=== PATIENT | female | born 1945 | race Caucasian/White ===

== ENCOUNTER → 2016-08-30 | Outpatient (CLI) | payer OTHER ==
[~2016-08-30] MED LIST: ASPEC81 PO; ATOR-22 PO; B-COCAP2 PO; B-COTAB18 PO; CALCTAB5 PO; CHOL200010; CHONDROITEN; FAMO20TA11 PO; FEXO1TAB46 PO; GLIM4TAB2 PO; GLUC1CAP35 PO; GLYCOSAMINE; HYDC25 PO; HYDR25TA4 PO; LISI20TA3 PO; MAGNESIUM; MULT-506 PO; ONDA4TAB10 SL; ONDA4TAB4 PO; OXYC-57 PO; OXYC1TAB3 PO; PROM25TA9 PO; SUDAFED PE; VITA1TAB4 PO; flonase nasal NAE; potassium otc
--- NOTE | 2016-08-31 10:57 | MAMMOGRAPHY REPORT ---
BILATERAL DIGITAL SCREENING MAMMOGRAM TOMOSYNTHESIS WITH CAD: 08/30/2016 CLINICAL HISTORY: Routine screening. Patient has no complaints. TECHNIQUE: Breast tomosynthesis in addition to standard 2D mammography was performed. Current study was also evaluated with a Computer Aided Detection (CAD) system. COMPARISON: Comparison is made to exams dated: 08/22/2015 mammogram, 04/22/2014 mammogram, 02/21/2015 ul trasound, 05/10/2014 ultrasound, 05/10/2014 mammogram, and 12/22/2010 mammogram - [facility]. BREAST COMPOSITION: There are scattered areas of fibroglandular density in both breasts. FINDINGS: There are scattered stable benign-appearing rounded and rim calcifications in the breasts. Stable nodularity in the medial left breast. No new suspicious mass, architectural distortion or cluster of microcalcifications is seen. IMPRESSION: ACR BI-RADS CATEGORY 1: NEGATIVE There is no mammographic evidence of malignancy. A 1 year screening mammogram is recommended. The p atient will receive written notification of the results. Approximately 10% of breast cancers are not detected with mammography. A negative mammographic repor t should not delay biopsy if a clinically suggestive mass is present. Faviola Baker M.D. ay/:08/30/2016 17:42:51 Nurse Specialist: Maurilio RAMÍREZ)(M), letter sent: Normal 1/2 BI-RADS Code: ACR BI-RADS Category 1: Negative
== END ==
LOC: C.MAMM 11:43
PROVIDERS: ATTEND Obstetrics & Gynecology
DX: Z12.31 Encounter for screening mammogram for malignant neoplasm of breast (principal)

== ENCOUNTER 2016-10-25 12:28 | Emergency (ER) | payer OTHER ==
[~2016-10-25] VITALS: Ht 160 cm; Wt 87.3 kg
[~2016-10-25 12:28] MED LIST changes: -B-COTAB18 PO; -FEXO1TAB46 PO; -GLIM4TAB2 PO; -GLUC1CAP35 PO; -HYDR25TA4 PO; -ONDA4TAB10 SL; -OXYC1TAB3 PO; -PROM25TA9 PO; -VITA1TAB4 PO
[2016-10-25] MEDS ORDERED: ONDANSETRON INJ 2 MG/ML 2 ML VIAL IV STA (12:32)
--- NOTE | 2016-10-25 12:35 | EMERGENCY ROOM VISIT NOTE ---
History Report prepared by Puja: Kei Rayo Under the Supervision of: Dr. Manjinder Diaz D.O. First contact with patient: 12:27 Chief Complaint: FALL Stated Complaint: FALL/ ELBOW PAIN History of Present Illness The patient is a 70 year old female who presents to the Emergency Room with complaints of pain in her left elbow following a fall that occurred shortly prior to arrival. The patient states that she fell on her left side, with her arm pulled in towards her body, while she was planting shrubs today. She rates her current pain at an 8/10 in severity. The patient denies any pain in the back , abdomen, or legs. 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 A total of 10 systems reviewed and were otherwise negative. Past Medical & Surgical Medical Problems: (1) Carpal tunnel syndrome of right wrist (2) Cataract (3) Diabetes (4) HTN (hypertension) (5) Status post bilateral knee replacements Surgical Problems: (1) S/P cholecystectomy Family History No pertinent family history secondary to case. Social History Marital Status: Housing Status: lives with significant other Occupation Status: retired Current/Historical Medications Scheduled Atorvastatin (Lipitor), 20 MG PO HS B-Complex Vitamins (Vitamin B Complex), 1 TAB PO DAILY Cholecalciferol (Vitamin D), 2,000 MG DAILY Famotidine (Pepcid), 20 MG PO BID Fexofenadine Hcl (Felicia), 180 MG PO DAILY Glimepiride (Glimepiride), 1 TAB PO DAILY Jqsjbsjmrek-Aiyvmardcue-Xha C- (Glucosamine Chondroitin), 1 TAB PO DAILY Hydrochlorothiazide (Hctz), 25 MG PO DAILY Lisinopril (Prinivil), 20 MG PO QAM Multivitamin (Multivitamin), 1 TAB PO DAILY Ondasetron Odt (Zofran Odt), 4 MG SL Q6H Vitamin E (Vitamin E), 400 UNITS PO DAILY Scheduled PRN Oxycodone Immediate Rel Tab (Roxicodone Ir), 1-2 TAB PO Q4H PRN for Severe Pain Allergies Coded Allergies: Sulfamethoxazole w/Trimethoprim (Unverified Allergy, Severe, hives;rash, 5 /9/14) Codeine (Verified Adverse Reaction, Mild, VOMITING, 10/26/13) Physical Exam Vital Signs Date Time Temp Pulse Resp B/P Pulse Ox O2 Delivery O2 Flow Rate FiO2 10/25/16 14:38 73 18 128/76 96 Room Air 10/25/16 13:21 67 20 145/76 100 Room Air 10/25/16 12:45 36.6 78 18 183/111 98 Room Air Physical Exam GENERAL: Patient is awake, alert, and very anxious appearing. Appears to be in significant to severe pain. EYES: The conjunctivae are clear. The pupils are round and reactive. EARS, NOSE, MOUTH AND THROAT: The nose is without any evidence of any deformity. Mucous membranes are moist tongue is midline NECK: The neck is nontender and supple. RESPIRATORY: Normal respiratory effort is noted there is no evidence of wheezing rhonchi or rales CARDIOVASCULAR: Regular rate and rhythm noted there no murmurs rubs or gallops normal S1 normal S2 GASTROINTESTINAL: The abdomen is soft. Bowel sounds are present in all quadrants. Abdomen is nontender PELVIS: The Pelvis is stable. No tenderness to palpation is noted. BACK: No midline tenderness or or step-off noted range of motion in flexion extension as well as rotation no signs of muscle spasm noted MUSCULOSKELETAL/EXTREMITIES: There is significant tenderness over the mid-shaft of the LUE. Pulses were symmetric, patient was intact to motor over the median ulnar and nerve distributions. Full range of motion is noted in the hips and shoulders SKIN: There is no obvious evidence of any rash. There are no petechiae, pallor or cyanosis noted. NEUROLOGIC: Patient is awake alert and oriented x3. Medical Decision & Procedures ER Provider Diagnostic Interpretation: Radiology results as stated below per my review and radiologist interpretation: LEFT HUMERUS MIN 2 VIEWS ROUTINE CLINICAL HISTORY: Fall. COMPARISON: Left shoulder radiograph October 20, 2013. FINDINGS: There is a moderately displaced oblique fracture of the midshaft of the left humerus. The fracture may extend to the distal most aspect of the humeral component from the left total arthroplasty. Alignment of the left elbow is anatomic. This exam was compromised due to difficulty with patient positioning. Note that the entirety of the left shoulder arthroplasty was not imaged on this exam. IMPRESSION: Moderately displaced oblique mid shaft fracture of the left humerus. Fracture extends to the level of the distal most aspect of the humeral component of the arthroplasty. Electronically signed by: Reggie Dennis M.D. 10/25/2016 1:17 PM Dictated Date/Time: 10/25/2016 1:15 PM Laboratory Results 10/25/16 12:40 Red Blood Count 5.02, Mean Corpuscular Volume 84.7, Mean Corpuscular Hemoglobin 28.9, Mean Corpuscular Hemoglobin Concent 34.1, Mean Platelet Volume 10.1, Neutrophils (%) (Auto) 72.8, Lymphocytes (%) (Auto) 16.6, Monocytes (%) (Auto) 7.3, Eosinophils (%) (Auto) 2.2, Basophils (%) (Auto) 1.0, Neutrophils # (Auto) 6.84, Lymphocytes # (Auto) 1.56, Monocytes # (Auto) 0.69, Eosinophils # (Auto) 0.21, Basophils # (Auto) 0.09 10/25/16 12:40 Test 10/25/16 12:40 White Blood Count 9.40 K/uL (4.8-10.8) Red Blood Count 5.02 M/uL (4.2-5.4) Hemoglobin 14.5 g/dL (12.0-16.0) Hematocrit 42.5 % (37-47) Mean Corpuscular Volume 84.7 fL (80-100) Mean Corpuscular Hemoglobin 28.9 pg (25-34) Mean Corpuscular Hemoglobin Concent 34.1 g/dl (32-36) Platelet Count 311 K/uL (130-400) Mean Platelet Volume 10.1 fL (7.4-10.4) Neutrophils (%) (Auto) 72.8 % Lymphocytes (%) (Auto) 16.6 % Monocytes (%) (Auto) 7.3 % Eosinophils (%) (Auto) 2.2 % Basophils (%) (Auto) 1.0 % Neutrophils # (Auto) 6.84 K/uL (1.4-6.5) Lymphocytes # (Auto) 1.56 K/uL (1.2-3.4) Monocytes # (Auto) 0.69 K/uL (0.11-0.59) Eosinophils # (Auto) 0.21 K/uL (0-0.5) Basophils # (Auto) 0.09 K/uL (0-0.2) RDW Standard Deviation 43.0 fL (36.4-46.3) RDW Coefficient of Variation 14.0 % (11.5-14.5) Immature Granulocyte % (Auto) 0.1 % Immature Granulocyte # (Auto) 0.01 K/uL (0.00-0.02) Prothrombin Time 10.1 SECONDS (9.0-12.0) Prothromb Time International Ratio 0.9 (0.9-1.1) Activated Partial Thromboplast Time 27.5 SECONDS (21.0-31.0) Partial Thromboplastin Ratio 1.1 Anion Gap 9.0 mmol/L (3-11) Est Creatinine Clear Calc Drug Dose 83.1 ml/min Estimated GFR () 103.7 Estimated GFR (Non- 89.5 BUN/Creatinine Ratio 37.1 (10-20) Calcium Level 9.7 mg/dl (8.5-10.1) Total Bilirubin 0.6 mg/dl (0.2-1) Direct Bilirubin 0.1 mg/dl (0-0.2) Aspartate Amino Transf (AST/SGOT) 36 U/L (15-37) Alanine Aminotransferase (ALT/SGPT) 77 U/L (12-78) Alkaline Phosphatase 81 U/L (45-117) Total Protein 7.5 gm/dl (6.4-8.2) Albumin 4.1 gm/dl (3.4-5.0) Laboratory results per my review. Medications Administered Medications (Trade) Dose Ordered Sig/Bacilio Route Start Time Stop Time Status Last Admin Dose Admin Morphine Sulfate (MoRPHine SULFATE INJ) 4 mg Q15M PRN IV 10/25/16 12:45 10/25/16 15:08 DC 10/25/16 13:17 4 MG Ondansetron HCl (Zofran Inj) 4 mg NOW STAT IV 10/25/16 12:32 10/25/16 12:34 DC 10/25/16 12:40 4 MG ED Course 1228: The patient was evaluated in room B2. A complete history and physical examination were performed. 1232: Ordered Zofran 4 mg IV. 1245: Ordered Morphine Sulfate 4 mg IV. 1402: I discussed the case with Best Ramirez PA-C at this time. He will set up an appointment for the patient in the office as son as possible. 1413: Best Asher has set an appointment for tomorrow at 1130 for the patient. The patient will be discharged home. Medical Decision The patient's history was concerning for traumatic injury Differential diagnosis: Etiologies such as fracture, dislocation, intra-abdominal, pneumothorax, intrathoracic , intracranial, neurologic, as well as other traumatic pathologies were entertained. Nursing notes reviewed. The patient is a 70-year-old female who presented to the emergency department after a fall. The patient has a history of left humerus surgery from a previous humeral fracture. She fell onto her left side. She presented with very severe pain and a physical exam consistent with a humeral fracture. X-rays did reveal a spiral fracture which was displaced. The patient was intact to motor exam in the median ulnar and radial nerve distributions. She did complain of intermittent tingling in the left hand but to light touch her sensation appeared intact. I was very concerned about the neurovascular compromise given the patient's x-ray findings. The patient was placed into a splint and treated with IV pain medication. On subsequent reevaluation she was feeling much better. I discussed her case with the orthopedic service of her choice. They were able to review the films. They agree that the patient's x-ray findings are very concerning given the patient's comfort level she was able to be discharged home. The patient likely will require surgical intervention on this significant fracture. I did explain this with her. The patient does have a medical background and I do feel that she would recognize any neurovascular compromise. She was encouraged to follow-up with orthopedic physician as scheduled. She was also encouraged to return to the emergency apartment immediately if she develops any worsening symptoms such as weakness pain tingling swelling or any other worrisome symptoms in the left upper extremity. Consults Time Called: [phone] Consulting Physician: Best Ramirez PA-C Returned Call: [phone] I discussed the case with Best Ramirez PA-C at this time. He will set up an appointment for the patient in the office this week. Impression Primary Impression: Left humeral fracture Scribe Attestation The scribe's documentation has been prepared under my direction and personally reviewed by me in its entirety. I confirm that the note above accurately reflects all work, treatment, procedures, and medical decision making performed by me. Departure Information Dispostion Home / Self-Care Prescriptions Ondasetron Odt (ZOFRAN ODT) 4 Mg Tab 4 MG SL Q6H for Nausea, #20 TAB Prov: Manjinder Diaz, DO 10/25/16 Oxycodone Immediate Rel Tab (ROXICODONE IR) 5 Mg Tab 1-2 TAB PO Q4H Y for Severe Pain, #24 TAB Prov: Manjinder Diaz, DO 10/25/16 Patient Instructions [facility] Problem Qualifiers Primary Impression: Left humeral fracture Encounter type: initial encounter Humerus Location: shaft Fracture type: closed Fracture morphology: spiral Fracture alignment: displaced Qualified Codes: S42.342A - Displaced spiral fracture of shaft of humerus, left arm, initial encounter for closed fracture
[2016-10-25] MEDS: MoRPHine SULFATE 4 MG/ML 1 ML CARP\\VIAL IV PRN ×2 (12:41→13:17)
[2016-10-25 12:45] VITALS: TEMP 36.6; Ht 160 cm; Wt 87.3 kg
[2016-10-25 13:04] LABS: BASO ABS # 0.09 K/uL (0-0.2); COMPLETE YES; EOS % 2.2 %; HEMATOCRIT 42.5 % (37-47); IG% 0.1 %; LYMPH % 16.6 %; LYMPH ABS # 1.56 K/uL (1.2-3.4); MEAN CELL VOLUME 84.7 fL (80-100); MEAN CORPUSCULAR HEMOGLOBIN 28.9 pg (25-34); MEAN CORPUSCULAR HGB CONC 34.1 g/dl (32-36); MEAN PLATELET VOLUME 10.1 fL (7.4-10.4); MONO % 7.3 %; NEUT % 72.8 %; PLATELET COUNT 311 K/uL (130-400); RED BLOOD COUNT 5.02 M/uL (4.2-5.4)
--- NOTE | 2016-10-25 13:18 | DIAGNOSTIC IMAGING REPORT ---
LEFT HUMERUS MIN 2 VIEWS ROUTINE CLINICAL HISTORY: Fall. COMPARISON: Left shoulder radiograph October 20, 2013. FINDINGS: There is a moderately displaced oblique fracture of the midshaft of the left humerus. The fracture may extend to the distal most aspect of the humeral component from the left total arthroplasty. Alignment of the left elbow is anatomic. This exam was compromised due to difficulty with patient positioning. Note that the entirety of the left shoulder arthroplasty was not imaged on this exam. IMPRESSION: Moderately displaced oblique mid shaft fracture of the left humerus. Fracture extends to the level of the distal most aspect of the humeral component of the arthroplasty. Electronically signed by: Reggie Dennis M.D. 10/25/2016 1:17 PM Dictated Date/Time: 10/25/2016 1:15 PM
[2016-10-25 13:20] LABS: INR 0.9 (0.9-1.1); PARTIAL THROMBOPLASTIN RATIO 1.1; PROTHROMBIN TIME (PATIENT) 10.1 SECONDS (9.0-12.0)
[2016-10-25] MEDS ORDERED: GLUC1CAP35 PO (13:27)
[2016-10-25] MEDS ORDERED: GLIM4TAB2 PO (13:27)
[2016-10-25] MEDS ORDERED: HYDR25TA4 PO (13:27)
[2016-10-25] MEDS ORDERED: FEXO1TAB46 PO (13:27)
[2016-10-25] MEDS ORDERED: VITA1TAB4 PO (13:27)
[2016-10-25] MEDS ORDERED: B-COTAB18 PO (13:27)
[2016-10-25 13:34] LABS: BUN/CREATININE RATIO 37.1 (10-20); CREATININE 0.66 mg/dl (0.60-1.20); POTASSIUM 3.4 mmol/L (3.5-5.1)
[2016-10-25 13:41] LABS: CALCIUM 9.7 mg/dl (8.5-10.1)
[2016-10-25] MEDS ORDERED: OXYC1TAB3 PO (14:19)
[2016-10-25] MEDS ORDERED: ONDA4TAB10 SL (14:32)
[2016-10-25 14:38] VITALS: BP 128/76; PULSE 73; O2SAT 96
== END 2016-10-25 14:55 | disposition home or self-care (01) ==
LOC: EDBD 12:28 → C.EDB 12:29
DX: S42.342A Displaced spiral fracture of shaft of humerus, left arm, initial encounter for closed fracture (principal); W19.XXXA Unspecified fall, initial encounter; Y92.017 Garden or yard in single-family (private) house as the place of occurrence of the external cause; E11.9 Type 2 diabetes mellitus without complications; I10 Essential (primary) hypertension; Z96.653 Presence of artificial knee joint, bilateral; Z79.899 Other long term (current) drug therapy

== ENCOUNTER → 2016-10-26 | Outpatient (CLI) | payer OTHER ==
[~2016-10-26] MED LIST changes: -ASPEC81 PO; -B-COCAP2 PO; +B-COTAB18 PO; -CALCTAB5 PO; -CHONDROITEN; +FEXO1TAB46 PO; +GLIM4TAB2 PO; +GLUC1CAP35 PO; -GLYCOSAMINE; -HYDC25 PO; +HYDR25TA4 PO; -MAGNESIUM; +ONDA4TAB10 SL; -ONDA4TAB4 PO; +OXYC1TAB3 PO; +PROM25TA9 PO; -SUDAFED PE; +VITA1TAB4 PO; -flonase nasal NAE; -potassium otc
[2016-10-26 17:41] LABS: BASO % 0.8 %; BASO ABS # 0.08 K/uL (0-0.2); COMPLETE YES; EOS % 1.8 %; HEMATOCRIT 35.9 % (37-47); IG% 0.1 %; LYMPH % 25.3 %; LYMPH ABS # 2.52 K/uL (1.2-3.4); MEAN CELL VOLUME 86.9 fL (80-100); MEAN CORPUSCULAR HEMOGLOBIN 29.3 pg (25-34); MEAN CORPUSCULAR HGB CONC 33.7 g/dl (32-36); MEAN PLATELET VOLUME 10.7 fL (7.4-10.4); MONO % 11.7 %; NEUT % 60.3 %; PLATELET COUNT 278 K/uL (130-400); RED BLOOD COUNT 4.13 M/uL (4.2-5.4); WHITE BLOOD COUNT 9.97 K/uL (4.8-10.8)
[2016-10-26 18:38] LABS: BLOOD UREA NITROGEN 25 mg/dl (7-18); BUN/CREATININE RATIO 32.7 (10-20); CALCIUM 8.9 mg/dl (8.5-10.1); CARBON DIOXIDE 30 mmol/L (21-32); CHLORIDE 100 mmol/L (98-107); CREATININE 0.75 mg/dl (0.60-1.20); GLUCOSE 121 mg/dl (70-99); POTASSIUM 3.3 mmol/L (3.5-5.1); SODIUM 139 mmol/L (136-145)
[2016-10-27 07:10] LABS: ESTIMATED AVERAGE GLUCOSE 143 mg/dl; HA1C FLAG Normal (Normal)
--- NOTE | 2016-11-08 08:43 | CODING QUERY MEDICAL NECESSITY ---
SUPPORTING DIAGNOSIS NEEDED Dr. Fernandez, A supporting diagnosis is required for the test/procedure performed on this patient in order for us to be reimbursed by the patient's insurance. Please provide a supporting diagnosis for the following test/procedure listed below next to the test name along with your signature. *If there is no additional diagnosis for this patient that would support the following test/procedure please document that below next to the test/procedure. Test(s)/Procedure(s) that require a supporting diagnosis: * 48940 GLYCATED HEMOGLOBIN DIAGNOSIS: DATE OF SERVICE: 10/26/16 Provider Signature: Date: Thank you Ammon Vines [facility] Information Management Once completed, please kindly fax back to [phone] For questions please call [phone]
== END | disposition home or self-care (01) ==
LOC: C.CPL 16:34
PROVIDERS: ATTEND Orthopaedic Surgery
DX: Z01.818 Encounter for other preprocedural examination (principal)

== ENCOUNTER 2016-10-29 10:30 | Inpatient (IN) | payer OTHER ==
--- NOTE | 2016-10-28 16:29 | HISTORY & PHYSICAL EXAMINATION ---
DATE OF ADMISSION: 10/29/2016 SUBJECTIVE CHIEF COMPLAINT: Left elbow and shoulder pain. HISTORY OF PRESENT ILLNESS: The patient is a 70-year-old female who presents with left elbow and shoulder pain. She stated that she had a fall while she was planting shrubs today. She presented to the emergency room where she complained of elbow and shoulder pain. She states that the pain was an 8/10 in severity. She denied any back pain, abdominal pain or leg pain. PAST MEDICAL HISTORY: Significant for diabetes and hypertension. PAST SURGICAL HISTORY: Carpal tunnel syndrome of the right wrist, bilateral TKA, and cholecystectomy. SOCIAL HISTORY: The patient denies alcohol use. She denies smoking or tobacco use. Denies IV drug use. She is currently and retired. ALLERGIES: BACTRIM AND CODEINE. MEDICATIONS: Atorvastatin 20 mg p.o. daily, B complex, vitamins, vitamin D, Pepcid 20 mg p.o. b.i.d., Felicia 100 mg p.o. daily, glimepiride 1 tab p.o. daily, glucosamine chondroitin 1 tab p.o. daily, hydrochlorothiazide 25 mg p.o. daily, lisinopril 20 mg p.o. q.a.m., multivitamin, vitamin E. REVIEW OF SYSTEMS: She denies headaches, fevers, chills, double vision, blurry vision, sore throat, congestion, cough, nausea, vomiting, diarrhea, constipation, numbness or tingling, tired, urinary difficulties, thoughts to harm herself or harm others, or depression. She is positive for joint pain and stiffness of her left upper extremity. OBJECTIVE: GENERAL APPEARANCE: The patient is a 70-year-old female that is sitting. She is in no acute distress. She is awake, alert and oriented x3. VITAL SIGNS: Her blood pressure was 145/76. HEENT: Extraocular movements are intact. PERRLA. Mucosa was moist. No septal deviation. NECK: Supple with no lymphadenopathy, no JVD, no thyromegaly. HEART: Regular rate and rhythm with no murmurs or gallops. LUNGS: Clear to auscultation. No wheezing or rhonchi. ABDOMEN: Soft, nontender, nondistended. Normal bowel sounds, no hepatosplenomegaly. EXTREMITIES: Paying particular attention to the left upper extremity. She is splinted. She has diffuse tenderness of the upper extremity upon palpation, ecchymosis is noted, not able to move the extremity due to pain. NEUROLOGIC: Cranial nerves II-XII were intact. Pulses were compared bilaterally and were equal. IMAGING DATA: X-rays of the left humerus demonstrate a displaced oblique fracture of the midshaft of the left humerus, alignment of the left elbow is anatomical and fracture may extend to the distal most aspect of the humeral component of the left total shoulder arthroplasty. IMPRESSION: Closed displaced oblique midshaft fracture of the left humerus. PLAN: The patient is scheduled for an open reduction internal fixation of her displaced oblique midshaft humerus fracture. Risks and benefits were discussed with the patient that included but not limited to infection, DVT, limited range of motion, failure to relieve all symptoms, nonunion, blood vessel damage, nerve damage, PE and . The patient understands these risks and wishes to proceed. All questions were answered to her satisfaction. CLEMENT
[2016-10-28 17:10] VITALS: BMI 33.2
[~2016-10-29] VITALS: Ht 160 cm; Wt 85.0 kg
[2016-10-29] VITALS (7 sets, daily range): BP systolic 121–132; BP diastolic 63–77; PULSE 60–94; TEMP 36.3–37; O2SAT 94–99; Ht 160 cm; Wt 85.0 kg
[~2016-10-29 10:30] MED LIST changes: -OXYC-57 PO; -PROM25TA9 PO
[2016-10-29] MEDS ORDERED: FENTANYL CITRATE INJ 50 MCG/1 ML 2 ML VIAL ONE ×3 (10:46→13:38)
[2016-10-29] MEDS ORDERED: MIDAZOLAM HCL 1 MG/ML 2ML VIAL ONE (10:46)
[2016-10-29] MEDS ORDERED: ROCURONIUM BROMIDE 10 MG/ML 5 ML VIAL ONE ×2 (10:46→13:50)
[2016-10-29] MEDS ORDERED: ONDANSETRON INJ 2 MG/ML 2 ML VIAL ONE ×2 (10:46→17:16)
[2016-10-29] MEDS ORDERED: DEXAMETHASONE SOD INJ 4 MG/ML VIAL ONE ×2 (10:46→12:15)
[2016-10-29] MEDS ORDERED: PROPOFOL IV EMULSION 10 MG/ML 20 ML VIAL IV ONE (10:46)
[2016-10-29] MEDS ORDERED: LIDOCAINE HCL 2% 2 ML VIAL (20MG/ML) ONE (10:46)
--- NOTE | 2016-10-29 11:23 | History & Physical Bridge Note ---
H&P Re-Evaluation Bridge Note: I have examined the patient, reviewed the History & Physical and in the interval since the performance of the History & Physical I have noted the following changes of clinical significance: No changes noted
[2016-10-29] MEDS ORDERED: BUPIVACAINE/EPINEPHRINE 0.5% MPF 1:200,000 30 ML VIAL ONE ×2 (12:15→12:19)
[2016-10-29] MEDS ORDERED: BUPIVACAINE/EPINEPHRINE 0.25% 1:200,000 30 ML VIAL ONE (12:18)
[2016-10-29] MEDS: CEFAZOLIN 2000 MG/60 ML D5W IV SCH ×2 (12:44→12:46)
[2016-10-29] MEDS ORDERED: BUPIVACAINE 0.5 % 5 MG/1 ML MPF 30ML VIAL ONE (12:58)
[2016-10-29] MEDS ORDERED: BACITRACIN 50000 UNIT VIAL ONE (12:59)
[2016-10-29] MEDS ORDERED: LABETALOL HCL IV 5 MG/ML 20ML IV ONE ×7 (14:38)
[2016-10-29] MEDS ORDERED: EpHEDrine SULFATE INJ 50 MG/ML AMP ONE (14:50)
[2016-10-29] MEDS ORDERED: GLYCOPYRROLATE INJ 0.2 MG/ML VIAL ONE (15:03)
[2016-10-29] MEDS ORDERED: NEOSTIGMINE METHYLSULFATE 5 MG/5 ML SYR ONE (15:03)
--- NOTE | 2016-10-29 15:16 | DIAGNOSTIC IMAGING REPORT ---
LEFT HUMERUS MIN 2 VIEW ROUTINE CLINICAL HISTORY: ORIF of left humerus COMPARISON STUDY: Left humerus radiographs October 25, 2016. Fluoroscopy time: 92 seconds. FINDINGS: A left shoulder arthroplasty is again noted. There has been interval placement of a left humeral plate with screws. This hardware fixates the left humeral fracture. Fracture alignment has markedly improved and is now near anatomic. A radiodensity adjacent to the left humerus is postsurgical. There are no unexpected radiopaque foreign bodies. IMPRESSION: Expected findings following left humeral internal fixation. Electronically signed by: Reggie Dennis M.D. 10/29/2016 3:15 PM Dictated Date/Time: 10/29/2016 3:13 PM
[2016-10-29] MEDS ORDERED: HYDROmorphone INJ 1 MG/ML SYR ONE ×2 (16:14→16:28)
[2016-10-29] MEDS ORDERED: ATROPINE SULFATE 0.1 MG/ML 5ML SYR IV PRN (16:15)
[2016-10-29] MEDS ORDERED: EpHEDrine SULFATE INJ 50 MG/ML AMP IV PRN (16:15)
[2016-10-29] MEDS ORDERED: HYDROmorphone INJ 1 MG/ML SYR IV PRN (16:15)
[2016-10-29] MEDS ORDERED: ONDANSETRON INJ 2 MG/ML 2 ML VIAL IV PRN ×2 (16:15→17:00)
[2016-10-29] MEDS ORDERED: SOD PHOSPHATE/SOD BIPHOSPHATE ENEMA 132 ML BTL PR PRN (17:00)
[2016-10-29] MEDS ORDERED: MAGNESIUM HYDROXIDE SUSP 30 ML UDC PO PRN (17:00)
[2016-10-29] MEDS ORDERED: BISACODYL 10 MG SUPP PR PRN (17:00)
[2016-10-29] MEDS ORDERED: ALUMINUM/MAGNESIUM/SIMETH (MAALOX MAX) 30 ML UDC PO PRN (17:00)
[2016-10-29] MEDS ORDERED: MoRPHine SULFATE 2 MG/ML CARP IV PRN (17:00)
--- NOTE | 2016-10-29 17:23 | [facility] Post Operative Brief Note ---
Immediate Operative Summary Operative Date October 29, 2016. Pre-Operative Diagnosis Closed displaced oblique midshaft fracture of the left humerus, periprosthetic Post-Operative Diagnosis same Procedure(s) Performed Left Humeral Periprosthetic Fracture Open Reduction Internal Fixation Surgeon Dr. Fernandez Chief Marketing Officer Surgeon(s) Best Asher PA-C Estimated Blood Loss 350ml Findings above, radial nerve at the level of the fracture, identified and protected Specimens 0 Drains 1 hemovac Anesthesia geta Complication(s) None Disposition Recovery Room / PACU
[2016-10-29] MEDS: LACTATED RINGER'S 1000ML 1,000 ML IV SCH ×2 (17:46→17:48)
--- NOTE | 2016-10-29 17:54 | Anesthesiology Progress Note ---
Anesthesia Post Op Note Date & Time October 29, 2016 at 17:54 Vital Signs Pain Intensity: 2 Vital Signs Past 12 Hours Date Time Temp Pulse Resp B/P Pulse Ox O2 Delivery O2 Flow Rate FiO2 10/29/16 17:00 36.0 61 16 148/62 100 Nasal Cannula 2 10/29/16 16:50 61 16 134/66 100 Nasal Cannula 2 10/29/16 16:40 58 16 147/64 100 Nasal Cannula 2 10/29/16 16:30 60 16 132/84 100 Nasal Cannula 2 10/29/16 16:20 60 16 132/60 100 Nasal Cannula 2 10/29/16 16:10 64 16 131/82 100 Nasal Cannula 4 10/29/16 16:00 69 16 143/70 100 Mask 10 10/29/16 15:52 36.2 76 16 144/67 100 Mask 10 Notes Mental Status: alert / awake / arousable, participated in evaluation Pt Amnestic to Procedure: Yes Nausea / Vomiting: adequately controlled Pain: adequately controlled Airway Patency, RR, SpO2: stable & adequate BP & HR: stable & adequate Hydration State: stable & adequate Anesthetic Complications: no major complications apparent Block working well in pacu
[2016-10-29] MEDS ORDERED: PHARMACY GLYCEMIC MGMT CONSULT SCH (18:09)
[2016-10-29] MEDS ORDERED: MoRPHine SULFATE 4 MG/ML 1 ML CARP\\VIAL IV PRN (18:15)
[2016-10-29] MEDS ORDERED: MoRPHine SULFATE 10 MG/ML CARP/VIAL IV PRN (18:15)
[2016-10-29] MEDS: POTASSIUM CHLORIDE INJ 10 MEQ in SODIUM CHLORIDE 0.9% 1000ML 1,000 ML IV SCH (18:52)
[2016-10-29] MEDS ORDERED: DEXTROSE 50% 50 ML SYR IV PRN (19:15)
[2016-10-29] MEDS ORDERED: GLUCOSE 40% GEL 15 GM TUBE PO PRN (19:15)
[2016-10-29] MEDS ORDERED: GLUCOSE 10 TABS/TUBE PO PRN (19:15)
[2016-10-29] MEDS ORDERED: GLUCAGON FOR INJ 1 MG VIAL SQ PRN (19:15)
--- NOTE | 2016-10-29 19:28 | Progress Note ---
Progress Note Date of Service October 29, 2016. Progress Note left humerus fx s/p orif, dm, htn dyslipidemia, [id number]
--- NOTE | 2016-10-29 20:08 | CONSULTATION REPORT ---
DATE OF CONSULTATION: 10/29/2016 PHYSICIAN REQUESTING CONSULTATION: Gabe Fernandez MD REASON FOR CONSULTATION: Medical management post left humeral periprosthetic fracture, ORIF. HISTORY OF PRESENT ILLNESS: The patient is a 70-year-old white female admitted to Dr. Fernandez's service because of the left elbow and shoulder pain. She had a fall and has closed displaced mid shaft fracture in the left humerus. Dr. Fernandez did a procedure like I mentioned in the above before. Medicine consulted for the medical management. The patient has past medical history of diabetes, hypertension. When I talked to patient, she felt sleepy, possibly from the pain medicine, but has no obvious complaint. Denied fever or chill. Denied cough, sputum, shortness of breath, palpitation. Denied chest pain, palpitation, lower extremity swellings. Denied nausea, vomiting, abdominal pain, diarrhea, or constipation. Denied dysuria, urgency, or frequencies. Denied facial droop, slurry speeches or local weakness. Denied skin rashes. PAST MEDICAL HISTORY: Like I mentioned in the above which includes diabetic and hypertension. PAST SURGICAL HISTORY: Includes carpal tunnel surgeries, bilateral TKA, cholecystectomy, and today's left humerus ORIF which was on the fracture. SOCIAL HISTORY: Denied alcohol abuse disorder, denied illicit drug abuse, denied tobacco abuse. ALLERGIES: ALLERGIC TO BACTRIM AND CODEINE. MEDICATIONS: Taking prior to the admission include; 1. Atorvastatin 20 mg p.o. daily. 2. Vitamin B complex. 3. Pepcid 20 mg p.o. b.i.d. 4. Felicia 100 mg p.o. daily. 5. Glimepiride 1 tab p.o. daily. 6. Glucosamine chondroitin 1 tab p.o. daily. 7. HCTZ 25 mg p.o. daily. 8. Lisinopril 20 mg p.o. q.a.m. 9. Multiple vitamin and vitamin E. REVIEW OF SYSTEMS: Please see HPI. FAMILY HISTORY: Noncontributory. PHYSICAL EXAMINATION: VITAL SIGNS: Temperature is 36.6, pulse 68, respiratory rate 18, blood pressure 129/74, pulse ox was 99% on room air. GENERAL: The patient is a white female, like I mentioned feels sleepy, but awake, alert and orientated, conversational, follows all commands. HEAD: Normocephalic. EYES: Pupils equal, round, responds to light. EARS: Normal. NOSE: Normal. NECK: Supple. Thyroid no enlargement. Trachea midline. HEART: Regular rhythm. S1, S2. LUNGS: Decreased breathing sounds. There was no wheezing, rhonchi or crackles. ABDOMEN: Soft, nontender. Bowel sound was positive. No hepatosplenomegaly. EXTREMITIES: Left arm is in dressing. Left hands, fingers, wrist pulse was normal and symmetric. No cyanosis. Capillary refill was normal. Bilateral lower extremities, no swelling. Homans sign was negative. ASSESSMENT AND PLAN: 1. Left shoulder closed displaced mid shaft fracture, status post open reduction and internal fixation. This will be managed by the primary team. Others such as physical therapy and occupational therapy, pain management, rehab, discharge plan will be per primary team. Deep venous thrombosis prophylaxis will be per primary team too. 2. History of hypertension, dyslipidemia and diabetic. We will continue home medications. We will start insulin sliding scale and for the blood pressure medicine it will be okay to restart home medication now, because patient's blood pressure has been stable. 3. I have ordered tomorrow morning labs including CBC, BMP and mag. Thank you for the chance to involve in the care of patient. We will continue to follow up. CLEMENT
[2016-10-29] MEDS: OXYCODONE HCL IR 5 MG TAB (IMMEDIATE RELEASE) PO PRN (20:59)
[2016-10-29] MEDS ORDERED: INSULIN ASPART 100 UNITS/ML 3 ML PEN SC SCH (21:00)
[2016-10-29] MEDS ORDERED: SENNA 8.6 MG TAB PO SCH (21:00)
[2016-10-29] MEDS ORDERED: ATORVASTATIN 20 MG TAB PO SCH (21:00)
[2016-10-29] MEDS: DOCUSATE SODIUM 100 MG CAP PO SCH (21:01)
[2016-10-29] MEDS: FAMOTIDINE 20 MG TAB PO SCH (21:01)
[2016-10-29] MEDS ORDERED: LANTUS PER UNIT CHARGE SQ SCH (21:15)
--- NOTE | 2016-10-29 21:32 | Pharmacy Progress Note ---
Glycemic Control Intl Consult Date of Service October 29, 2016. Scope Glycemic Pharmacist consulted by Ash Osman PA-C on 10/29/16 for glycemic control and to write orders per [facility] inpatient glycemic control protocol Objective Weight (Kilograms): 85.000 Accuchecks BSG (last 24hrs): Test 10/29/16 10:50 10/29/16 17:58 10/29/16 20:51 Bedside Glucose 156 mg/dl (70-90) 234 mg/dl (70-90) 214 mg/dl (70-90) HbA1c Item Value Date Time Hemoglobin A1c 6.6 % H 10/26/16 1638 Recent Pertinent Medications Outpatient Anti-diabetic Regimen: * Glimepiride 4 mg PO daily * A1c = 6.6 % 10/26/16 Risk Factors for Insulin Resistance: * Steroids: Dexamethasone 4 mg IV x 2 doses in OR * Recent Surgery - POD #0 left shoulder surgery * Diet: T2DM Assessment & Plan ASSESSMENT: * 70 year old T2DM female s/p left shoulder surgery for humerus fracture with steroid induced hyperglycemia. * The patient will be given a one time dose of basal insulin tonight. Will reassess need for additional basal insulin on 10/30. I do not anticipate further basal insulin will be needed since patient does not have an ongoing steroid order. * Pt is maintained on oral antidiabetic agents as an outpatient * Oral agents are not recommended for inpatient use d/t drug interactions, changing PO intake, and difficulty titrating for acute hyper/hypoglycemia. ADA recommends re-initiating outpatient oral agents 1-2 days prior to discharge if/ when appropriate if they were held on admission. * Will hold oral agents for admission and utilize SQ basal bolus insulin regimen which is the recommended regimen for inpatient glycemic control. * Will initiate weight based insulin dosing for insulin jose patient and titrate based on BSG trends. * ADA & AACE recommend a goal blood sugar range 140-180 mg/dl for the majority of critically ill & non-critically ill patients. However, more stringent targets may be selected in individual cases. Will utilize more stringent goal of 110-140 mg/dl based on patient age & comorbidities. Additionally, tighter glycemic control is warranted to facilitate wound/infection healing. PLAN FOR INPATIENT GLYCEMIC CONTROL: * Hold glimepiride 4 mg PO daily * Give Lantus 15 units SQ HS x 1 * Bolus insulin with NOVOLOG per scale ACHS * Goal Range: Low 110 mg/dL - High 140 mg/dL * Correction Factor: 30 mg/dL/unit * Nutritional / Prandial insulin per carb ratio of 1 unit per 9 grams CHO consumed * Will add 0200 check for overnight coverage * Please note that the plan above was derived based on current level of insulin resistance and hospital stress. These recommendations are appropriate for inpatient admission only. Plan of care upon discharge will need to be reassessed to avoid potential outpatient hypo/hyperglycemia. Thank you.
[2016-10-29] MEDS: ACETAMINOPHEN 500 MG TAB PO SCH (21:40)
--- NOTE | 2016-10-29 22:25 | OPERATIVE REPORT ---
DATE OF OPERATION: 10/29/2016 PREOPERATIVE DIAGNOSIS: Periprosthetic left humerus fracture. POSTOPERATIVE DIAGNOSIS: Same. PROCEDURE: Open reduction internal fixation periprosthetic left humerus fracture. SURGEON: Dr. Fernandez. APPLICATIONS SUPPORT ANALYST: MILI Alicia, who was necessary for assistance with the procedure with positioning, prepping, draping, retraction and closure. ANESTHESIA: General endotracheal anesthesia with interscalene block. SPECIMENS: None. COMPLICATION: None. ESTIMATED BLOOD LOSS: 200 mL INDICATIONS: The patient is a 70-year-old female who had previously undergone left shoulder hemiarthroplasty for proximal humerus fracture. She healed from this, this was about 2 years ago. She sustained a new fall and sustained a fracture around the tip of the stem, spiral oblique in nature. Given the amount of displacement and location of the fracture, being next to her hemiarthroplasty, I recommended open reduction internal fixation. Risks, benefits, and alternatives to surgery including but not limited to infection, DVT, pain, stiffness, need for urgent surgery, failure to relieve all symptoms, damage to blood vessels, damage to nerves, particularly damage to the radial nerve, risks of anesthesia were discussed with the patient and she wished to proceed. DESCRIPTION OF PROCEDURE: The patient was identified, laterality was confirmed and marked. She received a preoperative antibiotic as well as interscalene block. She was transferred to the operating room, placed in supine position, induced with general endotracheal anesthesia per the anesthesia staff. She was then transferred to the prone position. All pressure points were well padded. Arm was placed on a radiolucent arm table. The right upper extremity was prepped and draped in usual sterile manner with ChloraPrep. I made a posterior approach to the humerus, sharply incised through the skin utilizing Bovie electrocautery to achieve hemostasis. We mobilized the triceps laterally, keeping it in continuity, dissecting laterally along the lateral epicondyle of the humerus and dissecting proximally. I identified the radial nerve. There was the radial nerve as well as one large accessory nerve branch running with the radial nerve as well as a large venous branch running along with the nerve as well. All this was identified and protected with Patrick drain. The nerve was right at the level of fracture site. It was very close to the most proximal spike of the fracture. We carried our dissection proximally. We then cleared the fracture of interposing hematoma. The cement restrictor was loose and was identified and removed. I ground down some of the cement that was visible within the humerus to ensure it did not block anything. I then reduced the fracture and held that reduced with a clamp and then placed a 4.0 cancellous fully-threaded screw from posterior to anterior to hold the reduction provisionally. I then utilized a Synthes metaphyseal plate, this was an 8-hole plate. We had the tapered small frag section down distally and the large frag section proximally. I placed a nonlocking screw distally, reducing the plate to bone, and then placed another nonlocking screw proximally. I was able to get bicortical fixation in the top most screw as I was able to slip past the humeral stem most proximally. I then confirmed reduction and placement of the plate. We were a little lateral distally, so removed the initial lateral screw and then moved the plate more medially and then placed a new screw. We had good alignment of the plate at this point. I then placed total of 4 locking unicortical screws proximally, these were periprosthetic screws from [employer]. I then placed additional 2 locking screws near the region of the fracture and then 4 of the small frag locking screws distal to the fracture. Confirmed reduction on AP and lateral fluoroscopy views, we had good reduction of the fracture, good placement of the implant, and good screw lengths. Wound was thoroughly irrigated. A drain was placed. Subcutaneous tissues closed with interrupted 2-0 Vicryl suture and skin with alvin. Sterile dressing was applied and sling placed. All needle and sponge counts were correct at the end of the procedure. The patient was transferred to the PACU in stable condition without apparent complication. I attest to the content of the Intraoperative Record and any orders documented therein. Any exceptio ns are noted below.
[2016-10-29] MEDS: OXYCODONE HCL 10 MG TABCR (OXYCONTIN) PO SCH (22:56)
[2016-10-29] MEDS: CEFAZOLIN IV 2,000 MG in DEXTROSE 5% 50ML 50 ML IV SCH (23:33)
[2016-10-30] MEDS ORDERED: INSULIN ASPART 100 UNITS/ML 3 ML PEN SC SCH (02:00)
[2016-10-30] MEDS: POTASSIUM CHLORIDE INJ 10 MEQ in SODIUM CHLORIDE 0.9% 1000ML 1,000 ML IV SCH (04:10)
[2016-10-30 04:25] VITALS: BP 119/69; PULSE 85; TEMP 36.7; O2SAT 94
[2016-10-30 06:00] LABS: HEMATOCRIT 29.2 % (37-47); MEAN CELL VOLUME 84.9 fL (80-100); MEAN CORPUSCULAR HEMOGLOBIN 28.8 pg (25-34); MEAN CORPUSCULAR HGB CONC 33.9 g/dl (32-36); MEAN PLATELET VOLUME 9.7 fL (7.4-10.4); PLATELET COUNT 306 K/uL (130-400); RED BLOOD COUNT 3.44 M/uL (4.2-5.4); WHITE BLOOD COUNT 11.32 K/uL (4.8-10.8)
[2016-10-30] MEDS: ACETAMINOPHEN 500 MG TAB PO SCH ×2 (06:07→13:34)
[2016-10-30 06:09] LABS: PROTHROMBIN TIME (PATIENT) 10.4 SECONDS (9.0-12.0)
[2016-10-30] MEDS: OXYCODONE HCL IR 5 MG TAB (IMMEDIATE RELEASE) PO PRN ×2 (06:12→13:15)
[2016-10-30 06:32] LABS: BUN/CREATININE RATIO 28.7 (10-20); CALCIUM 8.4 mg/dl (8.5-10.1); CREATININE 0.62 mg/dl (0.60-1.20); MAGNESIUM 2.3 mg/dl (1.8-2.4); POTASSIUM 4.4 mmol/L (3.5-5.1)
[2016-10-30 07:20] VITALS: BP 128/75; PULSE 87; TEMP 36.8; O2SAT 95
[2016-10-30] MEDS: CEFAZOLIN IV 2,000 MG in DEXTROSE 5% 50ML 50 ML IV SCH (07:46)
[2016-10-30 08:00] VITALS: O2SAT 95
[2016-10-30] MEDS ORDERED: MULTIVITAMIN TAB PO SCH ×2 (09:00)
[2016-10-30] MEDS ORDERED: TOCOPHERYL, DL-ALPHA 400 INTER.UNIT CAP PO SCH (09:00)
[2016-10-30] MEDS ORDERED: GLIMEPIRIDE 2 MG TAB PO SCH (09:00)
[2016-10-30] MEDS ORDERED: VITAMIN B COMPLEX TAB PO SCH (09:00)
[2016-10-30] MEDS ORDERED: FEXOFENADINE HCL 180 MG TAB PO SCH (09:00)
[2016-10-30] MEDS ORDERED: PANTOprazole SOD 40 MG TAB PO SCH (09:00)
[2016-10-30] MEDS ORDERED: CHOLECALCIFEROL 1000 INTER.UNIT TAB PO SCH (09:00)
[2016-10-30] MEDS ORDERED: LISINOPRIL 20 MG TAB PO SCH (09:00)
[2016-10-30] MEDS: DOCUSATE SODIUM 100 MG CAP PO SCH (09:40)
[2016-10-30] MEDS: OXYCODONE HCL 10 MG TABCR (OXYCONTIN) PO SCH (09:41)
[2016-10-30] MEDS: FAMOTIDINE 20 MG TAB PO SCH (09:41)
[2016-10-30] MEDS: INSULIN ASPART 100 UNITS/ML 3 ML PEN SC SCH ×2 (09:47→12:54)
--- NOTE | 2016-10-30 10:39 | Orthopedic Progress Note ---
Orthopedic Progress Note Date of Service October 30, 2016. Subjective Post OP Day: 1 Objective N/V intact, capillary refill less than 2 sec., dressing C/D/I radial nerve intact Date Time Temp Pulse Resp B/P Pulse Ox O2 Delivery O2 Flow Rate FiO2 10/30/16 08:00 95 Room Air 10/30/16 07:20 36.8 87 18 128/75 95 Room Air 10/30/16 04:25 36.7 85 18 119/69 94 Room Air 10/29/16 23:25 36.6 94 20 132/69 95 Room Air 10/29/16 20:45 37.0 82 18 130/63 98 Room Air 10/29/16 20:13 36.3 63 18 128/75 98 Nasal Cannula 2.0 10/29/16 19:31 36.8 68 16 121/73 94 Room Air 10/29/16 18:31 36.6 68 18 129/74 99 Room Air 10/29/16 17:55 36.4 60 16 130/77 98 Nasal Cannula 2.0 10/29/16 17:20 98 Nasal Cannula 2.0 10/29/16 17:20 98 Nasal Cannula 2.0 10/29/16 17:20 36.3 63 18 128/75 98 Nasal Cannula 2.0 10/29/16 17:00 36.0 61 16 148/62 100 Nasal Cannula 2 10/29/16 16:50 61 16 134/66 100 Nasal Cannula 2 10/29/16 16:40 58 16 147/64 100 Nasal Cannula 2 10/29/16 16:30 60 16 132/84 100 Nasal Cannula 2 10/29/16 16:20 60 16 132/60 100 Nasal Cannula 2 10/29/16 16:10 64 16 131/82 100 Nasal Cannula 4 10/29/16 16:00 69 16 143/70 100 Mask 10 10/29/16 15:52 36.2 76 16 144/67 100 Mask 10 Laboratory Results 24 Hours: Test 10/30/16 05:43 Hematocrit 29.2 % Hemoglobin 9.9 g/dL Prothromb Time International Ratio 1.0 Prothrombin Time 10.4 SECONDS Assessment & Plan Assessment: POD 1 s/p ORIF L caridad-pros humerus fx Pain controlled imani po nerve function is normal Plan d/c today
[2016-10-30] MEDS ORDERED: PROM25TA9 PO (11:26)
[2016-10-30] MEDS ORDERED: OXYC-57 PO (11:26)
--- NOTE | 2016-10-30 11:32 | Discharge Instructions ---
Discharge Instructions Date of Service October 30, 2016. Admission Reason for Admission: Left Closed Fracture Of Lower Humerus End Discharge Discharge Diagnosis / Problem: s/p ORIF left humerus fracture Discharge Goals Goal(s): Decrease discomfort, Improve function, Increase independence Activity Recommendations Activity Limitations: as noted below . Instructions / Follow-Up Instructions / Follow-Up ACTIVITY RECOMMENDATIONS: SELF CARE INSTRUCTIONS AFTER SURGERY A. No lifting with the operative arm. B. You are to wear your sling/immobilizer at all times EXCEPT for hygiene purposes. C. You may perform dry, daily dressing changes. Please keep your incision covered. Do not apply soap or any ointment/lotions directly over incision. Do not soak incision in bath tub/swimming pool. D. You may use ice as needed to operative arm SPECIAL CARE INSTRUCTIONS: VERY IMPORTANT TO READ AND REVIEW A. There are a few signs you need to watch for after you are home. Call [facility] at [phone] if you experience any of the followin. Increased severe shoulder pain. Some pain is expected especially when you exercise. 2. Increased swelling in you shoulder or arm; pain or swelling in either upper extremity. 3. Any fluid drainage from the incision. 4. Shortness of breath or chest pain. B. Please call [facility] at [phone] if you have any questions or concerns about your operation or recovery. C. Call your physician if: 1. Temperature is greater than 101 degrees (F). 2. Pain is not relieved by prescribed pain medications. 3. Increase drainage or redness from incision. 4. Unanswered questions or concerns. FOLLOW UP VISIT: Please call [facility] at [phone] to schedule a follow up appointment with Dr. Fernandez or his PA in 12-14 days from your surgery date. Current Hospital Diet Patient's current hospital diet: Diabetes Type 2 Diet Discharge Diet Recommended Diet: Diabetes Type 2 Diet Procedures Procedures Performed: Left Humeral Periprosthetic Fracture Open Reduction Internal Fixation Pending Studies Studies pending at discharge: no Laboratory Results Hemoglobin A1c Test 10/26/16 16:38 Range/Units Estimated Average Glucose 143 mg/dl Hemoglobin A1c 6.6 H 4.5-5.6 % Medical Emergencies . Who to Call and When: Medical Emergencies: If at any time you feel your situation is an emergency, please call 911 immediately. . Non-Emergent Contact Non-Emergency issues call your: Primary Care Provider, Surgeon . "Provider Documentation" section prepared by Ash Osman. . VTE Core Measure Inpt VTE Proph given/why not?: Treatment not indicated [place] Drug Monitoring Program Search Results: patient reviewed within database, no issues identified
[2016-10-30 12:57] VITALS: BP 128/75; PULSE 87; TEMP 36.8; O2SAT 95
--- NOTE | 2016-11-01 18:11 | DISCHARGE SUMMARY ---
DISCHARGE DIAGNOSIS: Left closed displaced oblique midshaft fracture of the left humerus periprosthetic fracture. SECONDARY DIAGNOSES: Diabetes mellitus, hypertension. CONSULTS: Dr. Bob Garay. COMPLICATIONS: None. PROCEDURES: Left humeral periprosthetic fracture, open reduction internal fixation by Dr. Fernandez on 10/29/2016. BRIEF HISTORY: As dictated in history and physical. HOSPITAL SUMMARY: The patient was admitted on the above date and had the above noted procedure performed which she tolerated well. Dr. Garay was consulted for postoperative medical management and continued to follow the patient during her stay. By her first postoperative day, she was feeling well and neurovascularly intact. Cap refill was less than 2 seconds. Dressings clean, dry and intact. Radial nerve was intact. Vital signs were stable. She was afebrile. Pain was controlled. Hemoglobin was 9.9 and it was felt that she could be discharged to home. For further review, please see chart. LABORATORY AND X-RAY DATA: As per chart. DISCHARGE INSTRUCTIONS: The patient was discharged to home in satisfactory condition on 10/30/2016. DIET: Diabetic. ACTIVITY: Follow post-ORIF instruction sheet and special care instructions as noted and follow up with Dr. Fernandez in 2 weeks. The patient to call for appointment if one has not been made for you. DISCHARGE MEDICATIONS: [place] 5/325 one to two tabs p.o. q. 4-6 hours p.r.n., Phenergan 25 mg p.o. q. 6 hours p.r.n. Resume atorvastatin 20 mg at bedtime, vitamin B complex 1 tab p.o. daily, vitamin D 2000 mg daily, Pepcid 20 mg p.o. b.i.d., Felicia 180 mg p.o. daily, glimepiride 4 mg p.o. daily, hydrochlorothiazide 25 mg p.o. daily, lisinopril 20 mg p.o. q.a.m., multivitamin 1 tab p.o. daily, vitamin E 400 units p.o. daily. Stop taking glucosamine chondroitin, stop taking Zofran and stop taking Roxicodone.
== END 2016-10-30 13:35 | disposition home or self-care (01) | DRG 493 ==
LOC: ENRESERVDT → ENRESERVTM → C.ACU 10:30 → C.3E 10:39
PROVIDERS: ADMIT Orthopaedic Surgery; ATTEND Orthopaedic Surgery
PROC: 0PSG04Z Reposition Left Humeral Shaft with Internal Fixation Device, Open Approach (ICD-10-PCS; principal; 2016-10-29 07:00)
DX: S42.332A Displaced oblique fracture of shaft of humerus, left arm, initial encounter for closed fracture (principal); M97.32XA Periprosthetic fracture around internal prosthetic left shoulder joint, initial encounter; E11.9 Type 2 diabetes mellitus without complications; I10 Essential (primary) hypertension; E78.5 Hyperlipidemia, unspecified; Z79.899 Other long term (current) drug therapy; Z79.84 Long term (current) use of oral hypoglycemic drugs; Z96.612 Presence of left artificial shoulder joint; W19.XXXA Unspecified fall, initial encounter; Y93.H2 Activity, gardening and landscaping; Y99.8 Other external cause status

== ENCOUNTER → 2016-12-13 | Outpatient (CLI) | payer OTHER ==
[~2016-12-13] MED LIST changes: -GLUC1CAP35 PO; -ONDA4TAB10 SL; +OXYC-57 PO; -OXYC1TAB3 PO; +PROM25TA9 PO
[2016-12-13 12:20] LABS: HEMATOCRIT 40.2 % (37-47); MEAN CELL VOLUME 85.9 fL (80-100); MEAN CORPUSCULAR HEMOGLOBIN 28.8 pg (25-34); MEAN CORPUSCULAR HGB CONC 33.6 g/dl (32-36); MEAN PLATELET VOLUME 10.8 fL (7.4-10.4); PLATELET COUNT 351 K/uL (130-400); RED BLOOD COUNT 4.68 M/uL (4.2-5.4); WHITE BLOOD COUNT 5.88 K/uL (4.8-10.8)
[2016-12-13 12:23] LABS: BLOOD UREA NITROGEN 28 mg/dl (7-18); BUN/CREATININE RATIO 36.5 (10-20); CALCIUM 9.1 mg/dl (8.5-10.1); CARBON DIOXIDE 25 mmol/L (21-32); CHLORIDE 105 mmol/L (98-107); CHOLESTEROL 172 mg/dl (0-200); CREATININE 0.77 mg/dl (0.60-1.20); GLUCOSE 120 mg/dl (70-99); POTASSIUM 3.5 mmol/L (3.5-5.1); SODIUM 140 mmol/L (136-145); TRIGLYCERIDES 139 mg/dl (0-150); VERY LOW DENSITY LIPOPROT CALC 28 mg/dl
[2016-12-13 12:33] LABS: ALB/GLOB RATIO 1.1 (0.9-2); ALKALINE PHOSPHATASE 103 U/L (45-117); ALT/SGPT 51 U/L (12-78); AST/SGOT 28 U/L (15-37); CHOLESTEROL/HDL RATIO 2.7; HDL CHOLESTEROL 64 mg/dl; LDL CHOLESTEROL CALCULATED 80 mg/dl
[2016-12-13 12:41] LABS: ESTIMATED AVERAGE GLUCOSE 126 mg/dl; HA1C FLAG Normal (Normal)
== END | disposition home or self-care (01) ==
LOC: C.LABPVFM 07:33
PROVIDERS: ATTEND Internal Medicine
DX: E11.9 Type 2 diabetes mellitus without complications (principal)

== ENCOUNTER → 2017-01-17 | Outpatient (CLI) | payer OTHER | END | disposition home or self-care (01) | LOC: C.MAMM 08:57 | PROVIDERS: ATTEND Internal Medicine | DX: M85.88 Other specified disorders of bone density and structure, other site (principal); M85.852 Other specified disorders of bone density and structure, left thigh ==

== ENCOUNTER → 2017-01-17 | Outpatient (CLI) | payer OTHER ==
--- NOTE | 2017-01-26 11:43 | CODING QUERY MEDICAL NECESSITY ---
SUPPORTING DIAGNOSIS NEEDED A supporting diagnosis is required for the test/procedure performed on this patient in order for us to be reimbursed by the patient's insurance. Please provide a supporting diagnosis for the following test/procedure listed below next to the test name along with your signature. *If there is no additional diagnosis for this patient that would support the following test/procedure please document that below next to the test/procedure. Test(s)/Procedure(s) that require a supporting diagnosis: * VITAMIN D, 25-HYDROXY DIAGNOSIS: Provider Signature: Date: Thank you Kallie Tsang [employer] Information Management Once completed, please kindly fax back to [phone] For questions please call [phone]
== END | disposition home or self-care (01) ==
LOC: C.LAB1850 09:27
PROVIDERS: ATTEND Internal Medicine
DX: M85.80 Other specified disorders of bone density and structure, unspecified site (principal)

== ENCOUNTER → 2017-06-03 | Outpatient (CLI) | payer OTHER ==
[~2017-06-03] MED LIST changes: -OXYC-57 PO; -PROM25TA9 PO
[2017-06-03 12:56] LABS: ALT/SGPT 71 U/L (12-78); AST/SGOT 41 U/L (15-37); BLOOD UREA NITROGEN 19 mg/dl (7-18); BUN/CREATININE RATIO 22.6 (10-20); CALCIUM 8.4 mg/dl (8.5-10.1); CARBON DIOXIDE 26 mmol/L (21-32); CHLORIDE 103 mmol/L (98-107); CHOLESTEROL 161 mg/dl (0-200); CREATININE 0.83 mg/dl (0.60-1.20); GLUCOSE 170 mg/dl (70-99); POTASSIUM 3.9 mmol/L (3.5-5.1); SODIUM 136 mmol/L (136-145); TRIGLYCERIDES 91 mg/dl (0-150); VERY LOW DENSITY LIPOPROT CALC 18 mg/dl
[2017-06-03 13:00] LABS: ESTIMATED AVERAGE GLUCOSE 148 mg/dl; HA1C FLAG Normal (Normal)
[2017-06-03 13:06] LABS: ALB/GLOB RATIO 1.1 (0.9-2); ALKALINE PHOSPHATASE 81 U/L (45-117); CHOLESTEROL/HDL RATIO 2.1; HDL CHOLESTEROL 75 mg/dl; LDL CHOLESTEROL CALCULATED 68 mg/dl; THYROID STIMULATING HORMONE 0.887 uIu/ml (0.300-4.500)
[2017-06-03 13:18] LABS: RATIO 11.7 mcg/mg (0-30.0)
== END | disposition home or self-care (01) ==
LOC: C.LABPVFM 09:48
PROVIDERS: ATTEND Internal Medicine
DX: I10 Essential (primary) hypertension (principal); E78.00 Pure hypercholesterolemia, unspecified; E11.9 Type 2 diabetes mellitus without complications; E55.9 Vitamin D deficiency, unspecified

== ENCOUNTER → 2017-09-05 | Outpatient (CLI) | payer OTHER ==
--- NOTE | 2017-09-05 13:56 | MAMMOGRAPHY REPORT ---
BILATERAL DIGITAL SCREENING MAMMOGRAM TOMOSYNTHESIS WITH CAD: 09/05/2017 CLINICAL HISTORY: Routine screening. Patient has no complaints. TECHNIQUE: Breast tomosynthesis in addition to standard 2D mammography was performed. Current study was also evaluated with a Computer Aided Detection (CAD) system. COMPARISON: Comparison is made to exams dated: 08/30/2016 mammogram, 08/22/2015 mammogram, 04/22/2014 ma mmogram, 12/26/2012 mammogram, 12/23/2011 mammogram, and 12/22/2010 mammogram - [facility] BREAST COMPOSITION: There are scattered areas of fibroglandular density in both breasts. FINDINGS: No suspicious masses, calcifications, or areas of architectural distortion are noted in ei ther breast. There has been no significant interval change compared to prior exams. Scattered bilater al benign-appearing calcifications are not significantly changed. Nodular asymmetry in the left medi al breast is stable compared to multiple prior exams. IMPRESSION: ACR BI-RADS CATEGORY 2: BENIGN There is no mammographic evidence of malignancy. A 1 year screening mammogram is recommended. The pa tient will receive written notification of the results. Approximately 10% of breast cancers are not detected with mammography. A negative mammographic report should not delay biopsy if a clinically suggestive mass is present. Abena Rdz M.D. /:09/05/2017 13:29:58 Beverage Steward: Sybil DIAZ(R)(M), [facility] letter sent: Normal 1/2 BI-RADS Code: ACR BI-RADS Category 2: Benign
== END | disposition home or self-care (01) ==
LOC: C.MAMM 09:46
PROVIDERS: ATTEND Internal Medicine
DX: Z12.31 Encounter for screening mammogram for malignant neoplasm of breast (principal)

== ENCOUNTER → 2018-02-01 | Outpatient (CLI) | payer OTHER ==
[2018-02-01 12:48] LABS: HEMOGLOBIN A1C 7.3 % (4.5-5.6)
[2018-02-01 13:08] LABS: ALBUMIN 3.8 gm/dl (3.4-5.0); ALKALINE PHOSPHATASE 60 U/L (45-117); ALT/SGPT 59 U/L (12-78); AST/SGOT 30 U/L (15-37); BLOOD UREA NITROGEN 22 mg/dl (7-18); CARBON DIOXIDE 26 mmol/L (21-32); CHOLESTEROL 132 mg/dl (0-200); CREATININE 0.82 mg/dl (0.60-1.20); GLUCOSE 160 mg/dl (70-99); LDL CHOLESTEROL CALCULATED 57 mg/dl; POTASSIUM 3.8 mmol/L (3.5-5.1); SODIUM 136 mmol/L (136-145); TOTAL PROTEIN 7.5 gm/dl (6.4-8.2)
== END | disposition home or self-care (01) ==
LOC: C.LABPVFM 08:37
PROVIDERS: ATTEND Internal Medicine
DX: E11.9 Type 2 diabetes mellitus without complications (principal); E55.9 Vitamin D deficiency, unspecified